=== PATIENT | male | born 1930 | race Asian ===

== ENCOUNTER 2019-02-25 13:02 | Inpatient (IN) | payer MEDICARE, MEDICAID ==
[~2019-02-25] VITALS: Ht 170.2 cm; Wt 62.6 kg
[2019-02-25] VITALS: BP 110/76
--- NOTE | 2019-02-25 13:30 | NUR ---
BIB RA 39,GLF ON THE WAY TO THE BATHROOM AT AN [facility], (+)GROSS DEFORMITY,LUE,(+) AIR SPLINT,100 MG FENTANYL GIVEN BY EMS. PT AAOX3, VSS. RR EVEN & UNLABORED. DENIES CP, SOB, DIZZINESS, N/V @ THIS TIME. PT SEEN & EVAL'D BY DR. HAGAN. DAUGHTER @ BS ASSISTING W/ TRANSLATION. WILL CONT TO MONITOR.
[2019-02-25 13:34] LABS: BASOPHILS % (AUTO) 0.3 % (0.0-2.0); EOSINOPHILS % (AUTO) 0.1 % (0.0-6.0); HEMATOCRIT 38 % (39-51); HEMOGLOBIN 12.6 g/dL (13.5-17.5); LYMPHOCYTES # (AUTO) 2.4 /CMM (0.8-4.8); LYMPHOCYTES % (AUTO) 19.7 % (20.0-44.0); MEAN CORPUSCULAR HGB CONC 33 g/dl (31.0-36.0); MEAN CORPUSCULAR VOLUME 97 fL (80-96); MONOCYTES # (AUTO) 0.6 /CMM (0.1-1.30); MONOCYTES % (AUTO) 4.7 % (2.0-12.0); NEUTROPHILS # (AUTO) 9.3 /CMM (1.8-8.9); NEUTROPHILS % (AUTO) 75.2 % (43.0-81.0); PLATELET COUNT (AUTO) 170 /CMM (150-450); RED BLOOD CELL COUNT(AUTO) 3.94 MIL/uL (4.5-6.0); WHITE BLOOD COUNT (AUTO) 12.3 K/uL (4.3-11.0)
[2019-02-25 13:42] LABS: CALCIUM, SERUM 9.4 mg/dL (8.5-10.1); CARBON DIOXIDE 29 mmol/L (21-32); CHLORIDE 104 mmol/L (98-107); CREATININE 1.2 mg/dL (0.6-1.3); GLUCOSE 237 mg/dL (74-106); POTASSIUM 3.8 mmol/L (3.5-5.1); SODIUM SERUM 140 mmol/L (136-145); UREA NITROGEN, BLOOD 27 mg/dL (7-18)
[2019-02-25 13:47] LABS: ALANINE AMINOTRANSFERASE 27 U/L (12-78); ALBUMIN 3.5 g/dL (3.4-5.0); ALKALINE PHOSPHATASE 68 U/L (46-116); ASPARTATE AMINOTRANSFERASE 19 U/L (15-37); BILIRUBIN,DIRECT 0.2 mg/dL (0.0-0.2); BILIRUBIN,TOTAL 0.6 mg/dL (0.2-1.0); TOTAL PROTEIN, SERUM 6.6 g/dL (6.4-8.2)
--- NOTE | 2019-02-25 13:49 | NUR ---
PT TO RADIOLOGY DEPT VIA [facility].
[2019-02-25] MEDS ORDERED: TAMS-12 PO (14:34)
[2019-02-25] MEDS ORDERED: INSU100I30 SQ (14:34)
[2019-02-25] MEDS ORDERED: AMYL1CAP58 PO (14:34)
[2019-02-25] MEDS ORDERED: CLOP75TA15 PO (14:34)
[2019-02-25] MEDS ORDERED: ATEN25TA PO (14:34)
[2019-02-25] MEDS ORDERED: ATOR10TA PO (14:34)
[2019-02-25] MEDS ORDERED: LOSA100T31 PO (14:34)
[2019-02-25] MEDS ORDERED: DEXL60CA3 PO (14:34)
[2019-02-25] MEDS ORDERED: DUTA0.5C PO (14:34)
[2019-02-25] MEDS ORDERED: IV NS 0.9% 1,000 ML BAG IV ONE (15:00)
--- NOTE | 2019-02-25 15:46 | NUR ---
PAGED [employer] FOR PANEL CALL
--- NOTE | 2019-02-25 15:51 | NUR ---
1525 WAITING FOR BED ASSIGNMENT FROM RN SUP
--- NOTE | 2019-02-25 16:20 | NUR ---
DERIAN PAGED FOR CONSULT. WAITING FOR CALL BACK FROM DR. STAFFORD
--- NOTE | 2019-02-25 16:24 | NUR ---
EPIC PAGED AGAIN WAITING FOR PANEL CALL
--- NOTE | 2019-02-25 16:58 | NUR ---
REPORT GIVEN TO STEPH COLINDRES FOR DARRYL
[2019-02-25 17:26] VITALS: BP 133/81
[2019-02-25 17:30] VITALS: BP 120/97
--- NOTE | 2019-02-25 18:00 | NUR ---
SUPERINTENDENT LOCAL NOTES Received pt from ER with dx of Syncope episode and s/p fall , under the care of DONNA CHOI AUTOMOBILE RADIO REPAIRER . A/O x1 with period of forgetfulness bed alarm place. Place on tele monitor with hr 87. IV HL RT FA, in place and flush well. Daughter at bedside per henri Ibarra to start cardiac diet. Noted juan cath in place with hematuria. Kept clean, dry. Plan of care discussed with pt and family. Bed alarm in place.Side rails up for safety, bed in lowest position. Per RN vmware engineer she'll going to see pt soon. Needs to place admission order. Will continue to monitor
--- NOTE | 2019-02-25 19:15 | NUR ---
NOTCHING PRESS OPERATOR NOTES Received pt in bed awake with family at bedside. pt noted with hematuria md aware. pt A/O x1 with period of forgetfulness. bed alarm on. pt on tele monitor with hr 87. safety measures in place with bed in lowest locked position with side rails up x2. call light within reach. will continue to monitor.
[2019-02-25 20:00] VITALS: BP 120/71
[2019-02-25] MEDS ORDERED: Z GUARD REMEDY 2 OZ OINT TP PRN (20:00)
[2019-02-25] MEDS ORDERED: HYDROCODONE/APAP 5/325MG 1 EACH TABLET PO PRN (20:00)
[2019-02-25] MEDS ORDERED: ZOLPIDEM TARTRATE 5 MG TABLET PO PRN (20:00)
[2019-02-25] MEDS ORDERED: ACETAMINOPHEN 325 MG TABLET PO PRN (20:00)
[2019-02-25] MEDS ORDERED: ONDANSETRON HCL/PF 4 MG/2 ML VIAL IVP PRN (20:00)
[2019-02-25] MEDS ORDERED: DEXTROSE 50%-WATER 50 ML DISP.SYRIN IV PRN (20:00)
[2019-02-25] MEDS ORDERED: MORPHINE SULFATE INJ 2 MG/ML DISP.SYRIN IV PRN (20:30)
[2019-02-25] MEDS: BLOOD SUGAR DIAGNOSTIC 1 EACH STRIP IN SCH ×2 (21:32→21:36)
[2019-02-25] MEDS: QUETIAPINE FUMARATE 25 MG TABLET PO SCH (21:37)
[2019-02-25 21:40] LABS: APPEARANCE,URINE SL CLOUDY (CLEAR); BILIRUBIN,URINE NEGATIVE (NEGATIVE); BLOOD, URINE LARGE Ery/uL (NEGATIVE); COLOR,URINE AMBER (YELLOW); KETONES,URINE NEGATIVE (NEGATIVE); LEUKOCYTE ESTERASE ,URINE NEGATIVE (NEGATIVE); NITRITE, URINE NEGATIVE (NEGATIVE); PROTEIN,URINE 30 mg/dl (NEGATIVE); UGLUCOSE 250 MG/DL mg/dL (NEGATIVE); UROBILINOGEN,URINE 0.2 EU/dL (0.2)
[2019-02-25 21:50] LABS: BACTERIA,URINE None seen /HPF (None Seen); RBC,URINE 51-80 /HPF (0-2); WBC,URINE NONE SEEN /HPF (0-3)
[2019-02-25] MEDS: INSULIN REGULAR, HUMAN 100 UNIT/ML 3 ML VIAL SQ PRN (22:18)
[2019-02-25] MEDS: IV NS 0.9% 1,000 ML IV PRN (22:55)
[2019-02-25] MEDS ORDERED: IV NS 0.9% 1,000 ML BAG IV PRN (23:00)
[2019-02-26] VITALS: BP 110/76
[2019-02-26 04:00] VITALS: BP_SYST 91; BP_SYST 94; BP_DIAS 48; BP_DIAS 54
[2019-02-26 06:30] LABS: HEMATOCRIT 27 % (39-51); HEMOGLOBIN 9.1 g/dL (13.5-17.5); LYMPHOCYTES # (AUTO) 1.1 /CMM (0.8-4.8); LYMPHOCYTES % (AUTO) 7.4 % (20.0-44.0); MEAN CORPUSCULAR HGB CONC 34 g/dl (31.0-36.0); MEAN CORPUSCULAR VOLUME 96 fL (80-96); MONOCYTES # (AUTO) 1.2 /CMM (0.1-1.30); MONOCYTES % (AUTO) 8.2 % (2.0-12.0); NEUTROPHILS # (AUTO) 12.5 /CMM (1.8-8.9); NEUTROPHILS % (AUTO) 84.4 % (43.0-81.0); PLATELET COUNT (AUTO) 133 /CMM (150-450); RED BLOOD CELL COUNT(AUTO) 2.79 MIL/uL (4.5-6.0); WHITE BLOOD COUNT (AUTO) 14.8 K/uL (4.3-11.0)
[2019-02-26 06:55] LABS: CALCIUM, SERUM 8.2 mg/dL (8.5-10.1); CARBON DIOXIDE 25 mmol/L (21-32); CHLORIDE 108 mmol/L (98-107); CREATININE 1.6 mg/dL (0.6-1.3); GLUCOSE 172 mg/dL (74-106); MAGNESIUM 2.5 mg/dL (1.8-2.4); PHOSPHORUS 4.6 mg/dL (2.5-4.9); POTASSIUM 4.5 mmol/L (3.5-5.1); SODIUM SERUM 144 mmol/L (136-145); UREA NITROGEN, BLOOD 34 mg/dL (7-18)
--- NOTE | 2019-02-26 07:00 | NUR ---
INSIDE PARTS SALES NOTES PATIENT IS RESTING IN BED, BUT EASILY WOKEN WITH NAME AND TOUCH. FAMILY IS AT BEDSIDE ( DAUGHTER) INFORMED HER ABOUT TREATMENT PLAN AND MEDICATION MANAGEMENT. PATIENT IS ON 2L OXYGEN PATIENT IS SATURATING WELL AT 96% . PATIENT IS A/O X1 PATIENT IS ON TELE MONITOR PATIENT IS SR AT 60-90'S . PATIENT HAS LEFT EDEMA SHOULD, WITH PURPLE AND YELLOW ANTERIOR AND MEDIAN AND LATERAL.PATIENT HAS A SLING ON PATIENT HAS DIAPER AND VANESSA VANESSA IS INTACT AND PATENT INTACT. THE COLOR OF THE URINE IS TEA COLOR. PATIENT HAS RFA 22# PATIENT HAS 75 ML/HR ( NS ) . BED LOCKED AND LOWEST POSITION, CALL LIGHT WITH IN REACH. ALL SAFETY MEASURES IMPLEMENTED PER HOSPITAL PROTOCOL
[2019-02-26 07:01] LABS: CHOLESTEROL 79 mg/dL (<200); HDL CHOLESTEROL 44 mg/dL (40-60); LDL 29 mg/dL (0-99); TRIGLYCERIDES 65 mg/dL (30-150)
--- NOTE | 2019-02-26 07:59 | NUR ---
SPORTS MEDICINE MASSEUR NOTES pt in bed resting with family at bedside. pt A/O x1 with period of forgetfulness. bed alarm on. pt on tele monitor with hr 75. pt with rfa #22g patent and intact infusing ns @75cc/hr. safety measures in place with bed in lowest locked position with side rails up x2. turned pt q2 hours throughout shift. pt kept clean, dry, and comfortable. call light within reach. will endorse to oncoming nurse for jason.
[2019-02-26 08:00] VITALS: BP 104/68
[2019-02-26] MEDS: BLOOD SUGAR DIAGNOSTIC 1 EACH STRIP IN SCH ×4 (09:36→22:19)
[2019-02-26] MEDS: PANTOPRAZOLE 40 MG TABLET.DR PO SCH (09:36)
--- NOTE | 2019-02-26 09:37 | NUR ---
WOUND CARE CONSULT: PT PRESENTS WITH LEFT SHOULDER SWELLING AND DISCOLORATION, LEFT KNEE DRY ABRASION AND NOSE DRY ABRASION, PRESENT ON ADMISSION. PT REFUSED TO TURN FOR FULL SKIN ASSESSMENT OF BACK AND BUTTOCKS. RECOMMENDATIONS MADE FOR SKIN PROTECTION. DISCUSSED WITH NURSING STAFF. PT ON GENESIS ISOFLEX LOW AIRLOSS BED. WILL SEE PRN. OTF BENDER NOTED. CURRENT KRISTI SCORE IS 15. MD IN AGREEMENT WITH PLAN OF CARE. Addendum: 02/26/19 at 0939 by KILO BECK WNDNU Amended: Links added.
--- NOTE | 2019-02-26 09:56 | NUR ---
ENTREPRENEURSHIP PROGRAM DIRECTOR NOTES BS 135- HOLD INSULIN. PATIENT DID NOT EAT FOOD NPO SINCE MIDNIGHT FAMILY AT BEDSIDE
--- NOTE | 2019-02-26 11:26 | NUR ---
PEDIATRIC DERMATOLOGIST NOTES - ATTENDING ATTENDING CHANDANA - SAW PATIENT
[2019-02-26] MEDS ORDERED: IV NS 0.9% 1,000 ML IV PRN (11:30)
[2019-02-26] MEDS ORDERED: AMYLASE/LIPASE/PROTEASE 1 CAP CAPSULE.DR PO SCH (13:00)
[2019-02-26 16:00] VITALS: BP 116/34
[2019-02-26] MEDS: LIPASE/PROTEASE/AMYLASE 1 EACH CAPSULE.DR PO SCH ×2 (16:27→19:16)
--- NOTE | 2019-02-26 18:00 | NUR ---
CANDY CUTTER MACHINE NOTES NO INSULIN COVERAGE.
--- NOTE | 2019-02-26 19:30 | NUR ---
VISUAL DESIGNER NOTES CLOSING PATIENT A/O X1 . PATIENT FAMILY AT BEDSIDE.NO PAIN PATIENT SHOWS NO SIGNS OF ACUTE DISTRESS, NO SOB, EVEN AND UNLABORED BREATHING . BED LOCKED AND LOWEST POSITION. CALL LIGHT WITH IN REACH . ALL SAFETY MEASURE IMPLEMENTED PER HOSPITAL POLICY
[2019-02-26 20:00] VITALS: BP 146/70
--- NOTE | 2019-02-26 20:00 | NUR ---
RN NOTES PM SHIFT PATIENT IS ALERT AND AWAKE, ROOM AIR, NO COMPLAIN OF PAIN AT REST, FAROESE SPEAKING ONLY, LEFT SHOULDER SUPPORTED WITH SLING, NOTED BRUISES DUE TO FALL, VANESSA CATHETER DRAINING WELL WITH DARK YELLOW URINE OUTPUT, FAMILY MEMBERS AT THE BEDSIDE, WILL CONTINUE TO MONITOR
[2019-02-26] MEDS: IV NS 0.9% 1,000 ML IV PRN (20:54)
[2019-02-26] MEDS: QUETIAPINE FUMARATE 25 MG TABLET PO SCH (21:54)
[2019-02-26] MEDS: ATORVASTATIN 10 MG TABLET PO SCH (21:54)
[2019-02-26] MEDS: INSULIN REGULAR, HUMAN 100 UNIT/ML 3 ML VIAL SQ PRN (22:00)
[2019-02-27] VITALS (10 sets, daily range): BP systolic 126–134; BP diastolic 18–76
[2019-02-27] MEDS: IV NS 0.9% 1,000 ML IV PRN ×3 (05:01→22:17)
[2019-02-27 06:00] LABS: BASOPHILS % (AUTO) 0.2 % (0.0-2.0); EOSINOPHILS % (AUTO) 0.1 % (0.0-6.0); HEMATOCRIT 23 % (39-51); HEMOGLOBIN 7.6 g/dL (13.5-17.5); LYMPHOCYTES % (AUTO) 9.2 % (20.0-44.0); MEAN CORPUSCULAR HGB CONC 34 g/dl (31.0-36.0); MEAN CORPUSCULAR VOLUME 97 fL (80-96); MONOCYTES # (AUTO) 0.9 /CMM (0.1-1.30); MONOCYTES % (AUTO) 8.6 % (2.0-12.0); NEUTROPHILS # (AUTO) 8.6 /CMM (1.8-8.9); NEUTROPHILS % (AUTO) 81.9 % (43.0-81.0); PLATELET COUNT (AUTO) 92 /CMM (150-450); RED BLOOD CELL COUNT(AUTO) 2.31 MIL/uL (4.5-6.0); WHITE BLOOD COUNT (AUTO) 10.5 K/uL (4.3-11.0)
[2019-02-27 06:22] LABS: CALCIUM, SERUM 7.7 mg/dL (8.5-10.1); CREATININE 1.2 mg/dL (0.6-1.3); MAGNESIUM 2.2 mg/dL (1.8-2.4); PHOSPHORUS 2.7 mg/dL (2.5-4.9); POTASSIUM 4.4 mmol/L (3.5-5.1)
--- NOTE | 2019-02-27 06:54 | NUR ---
RN NOTES PM SHIFT PATIENT ALERT AND AWAKE, STABLE ON ROOM AIR, NO COMPLAIN OF PAIN AT REST, PAIN DURING REPOSITIONING, LEFT SHOULDER SUPPORTED DURING REPOSITIONING, LEFT SHOULDER SECURED WITH SLING, NWB, DENIES NUMBNESS, ABLE TO MOVE FINGERS, SKIN WARM TO TOUCH, BRUISES NOTED DUE TO FALL, LAB REPORTED CORTISOL LEVEL OF 29,DR. TERAN NOTIFIED, NO NEW ORDER, VANESSA CATHETER DRAINING WELL WITH CLEAR YELLOW URINE, PER ORTHO, NO SURGICAL INTERVENTION PLANNED, WILL NEED SADLER BRACE, FOLLOW UP WITH DR. FUENTES IN 2 WEEKS. SON AT THE BEDSIDE.
--- NOTE | 2019-02-27 07:30 | NUR ---
SILVERWARE WASHER NOTES PATIENT IN BED SLEEPING , ABLE TO WAKE UP WHEN NAME CALLED. FAMILY MEMBER AT BED SIDE. NO SOB OR DISCOMFORT NOTED AT THIS TIME. CALL LIGHT WITHIN REACH BED AT THE LOWEST POSITION. WILL CONTINUE TO MONITOR.
[2019-02-27] MEDS: BLOOD SUGAR DIAGNOSTIC 1 EACH STRIP IN SCH ×4 (07:44→22:38)
--- NOTE | 2019-02-27 07:45 | NUR ---
BIN TRIPPER OPERATOR NOTES BG 130MG/DL NO INSULIN GIVEN.
[2019-02-27] MEDS: LIPASE/PROTEASE/AMYLASE 1 EACH CAPSULE.DR PO SCH ×3 (08:12→17:52)
[2019-02-27] MEDS: DUTASTERIDE (0.5 MG) 0.5 MG CAPSULE PO SCH ×2 (08:12→09:01)
[2019-02-27] MEDS: PANTOPRAZOLE 40 MG TABLET.DR PO SCH (08:12)
[2019-02-27] MEDS ORDERED: TAMSULOSIN 0.4 MG CAP.SR.24H PO SCH (09:00)
[2019-02-27] MEDS ORDERED: ATENOLOL 25 MG TABLET PO SCH (09:00)
[2019-02-27 09:24] LABS: LYMPHOCYTES % (MANUAL) 9 % (16-48); MONOCYTES % (MANUAL) 5 % (0-11.0); NEUTROPHILS % (MANUAL) 86 (42-76)
[2019-02-27] MEDS: INSULIN REGULAR, HUMAN 100 UNIT/ML 3 ML VIAL SQ PRN ×3 (12:24→22:38)
--- NOTE | 2019-02-27 14:07 | NUR ---
BRUSH CLEARING LABORER NOTES CALLED [facility] AND LEFT A MSG REQUESTED SADLER BRACE FOR LUE.
[2019-02-27] MEDS: MAGNESIUM HYDROXIDE 30 ML UDC PO PRN (17:52)
--- NOTE | 2019-02-27 19:18 | NUR ---
TECHNICAL PHOTOGRAPHER NOTES PATIENT IS IN BED A/OX 4 DAUGHTER AT BED SIDE. DENIES ANY PAIN WHEN SUPINE. ALL NEEDS ATTENDED. ALL MEDICATION ADMINISTRATED. CALL LIGHT WITHIN REACH , BED AT THE LOWEST POSITION LOCKED. ENDORSED TO SUPERVISOR HARVESTING NURSE FOR DARRYL.
[2019-02-27] MEDS: QUETIAPINE FUMARATE 25 MG TABLET PO SCH (22:16)
[2019-02-27] MEDS: ATORVASTATIN 10 MG TABLET PO SCH (22:16)
[2019-02-28 00:30] VITALS: BP 133/66
[2019-02-28] MEDS: IV NS 0.9% 1,000 ML IV PRN ×2 (05:30→18:42)
[2019-02-28 06:21] LABS: BASOPHILS % (AUTO) 0.2 % (0.0-2.0); EOSINOPHILS % (AUTO) 0.2 % (0.0-6.0); HEMATOCRIT 23 % (39-51); LYMPHOCYTES # (AUTO) 0.9 /CMM (0.8-4.8); LYMPHOCYTES % (AUTO) 12.7 % (20.0-44.0); MEAN CORPUSCULAR HGB CONC 34 g/dl (31.0-36.0); MEAN CORPUSCULAR VOLUME 93 fL (80-96); MONOCYTES # (AUTO) 0.6 /CMM (0.1-1.30); MONOCYTES % (AUTO) 8.8 % (2.0-12.0); NEUTROPHILS # (AUTO) 5.8 /CMM (1.8-8.9); NEUTROPHILS % (AUTO) 78.1 % (43.0-81.0); PLATELET COUNT (AUTO) 85 /CMM (150-450); RED BLOOD CELL COUNT(AUTO) 2.51 MIL/uL (4.5-6.0); WHITE BLOOD COUNT (AUTO) 7.4 K/uL (4.3-11.0)
[2019-02-28 06:39] LABS: CALCIUM, SERUM 7.1 mg/dL (8.5-10.1); MAGNESIUM 2.5 mg/dL (1.8-2.4); PHOSPHORUS 1.9 mg/dL (2.5-4.9); POTASSIUM 3.9 mmol/L (3.5-5.1)
--- NOTE | 2019-02-28 07:12 | NUR ---
VP INFORMATION TECHNOLOGY OPENING NOTE RECEIVED REPORT FROM NOC SHIFT NURSE, PT ASLEEP IN BED,ON ROOM AIR, SATURATING WELL, RESPIRATIONS EVEN AND UNLABORED, NO SIGNS OF RESPIRATORY DISTRESS NOTED. VANESSA CATHETER INTACT, PATENT, DRAINING CLEAR YELLOW URINE. IV SITE ON RIGHT FOREARM G22 INTACT, PATENT, NS INFUSING 125CC/HR, NO SIGNS OF INFILTRATION NOTED. BED IN LOW POSITION, LOCKED, CALL LIGHT WITHIN REACH.
[2019-02-28] MEDS: BLOOD SUGAR DIAGNOSTIC 1 EACH STRIP IN SCH ×4 (07:26→21:07)
[2019-02-28] MEDS: PANTOPRAZOLE 40 MG TABLET.DR PO SCH (07:29)
[2019-02-28] MEDS: INSULIN REGULAR, HUMAN 100 UNIT/ML 3 ML VIAL SQ PRN ×4 (07:30→20:24)
[2019-02-28 07:44] LABS: LYMPHOCYTES % (MANUAL) 8 % (16-48); MONOCYTES % (MANUAL) 4 % (0-11.0); NEUTROPHILS % (MANUAL) 88 (42-76)
[2019-02-28 08:00] VITALS: BP 120/60
[2019-02-28] MEDS: LIPASE/PROTEASE/AMYLASE 1 EACH CAPSULE.DR PO SCH ×3 (08:02→17:10)
[2019-02-28] MEDS: DUTASTERIDE (0.5 MG) 0.5 MG CAPSULE PO SCH (08:21)
[2019-02-28] MEDS ORDERED: K PHOS NEUTRAL 250 MG TABLET PO ONE (09:30)
--- NOTE | 2019-02-28 09:41 | NUR ---
CALLED [facility] [phone] LEFT VOICEMAIL. OPEN FRIDAY-FRIDAY ONLY.\ FAMILY NOTIFIED.
[2019-02-28 12:00] VITALS: BP 103/45
[2019-02-28] MEDS ORDERED: Calcium Gluconate 0.465 MEQ/ML VIAL IV ONE (13:00)
[2019-02-28] MEDS ORDERED: Sodium Phosphate 15 MMOL in IV D5W 250 ML IV ONE (13:00)
[2019-02-28] MEDS ORDERED: Calcium Gluconate 1GM/10ML 4.65 MEQ in IV NS 0.9% 50 ML IV ONE (13:00)
[2019-02-28 16:00] VITALS: BP 121/57
--- NOTE | 2019-02-28 18:25 | NUR ---
HISTORIAN DRAMATIC ARTS CLOSING NOTE PT AWAKE IN BED, ALERT AND ORIENTED X 1, TURKISH SPEAKING, DAUGHTER BY BEDSIDE FOR TRANSLATION, ON ROOM AIR, SATURATING WELL, RESPIRATIONS EVEN AND UNLABORED, NO SIGNS OF RESPIRATORY DISTRESS NOTED. VANESSA CATHETER INTACT, PATENT, DRAINING CLEAR YELLOW URINE. IV SITE ON RIGHT FOREARM G22 INTACT, PATENT, NS INFUSING 125CC/HR, NO SIGNS OF INFILTRATION NOTED. SINUS RHYTHM ON TELE MONITOR, HR 87. BED IN LOW POSITION, LOCKED, CALL LIGHT WITHIN REACH. PROVIDED SAFETY AND COMFORT TO PT THROUGHOUT SHIFT, ALL DUE MEDS GIVEN. WILL ENDORSE TO NOC SHIFT NURSE.
--- NOTE | 2019-02-28 19:30 | NUR ---
RN NOTE PT AWAKE IN BED IN SUPINE POSITION, ALERT AND ORIENTED X 1, YORUBA SPEAKING, FAMILY AT BEDSIDE, ON ROOM AIR, SATURATING WELL, RESPIRATIONS EVEN AND UNLABORED, NO SIGNS OF RESPIRATORY DISTRESS NOTED. VANESSA CATHETER PATENT AND DRAINING CLEAR YELLOW URINE. WITH IV SITE ON RIGHT FOREARM G22 PATENT WITH NS INFUSING 125CC/HR, SINUS RHYTHM ON TELE MONITOR, HR 87. BED IN LOW POSITION, LOCKED, CALL LIGHT WITHIN REACH WILL MONITOR.
[2019-02-28 20:00] VITALS: BP 138/69
[2019-02-28] MEDS: ATORVASTATIN 10 MG TABLET PO SCH (21:07)
[2019-02-28] MEDS: QUETIAPINE FUMARATE 25 MG TABLET PO SCH (21:07)
[2019-03-01] VITALS: BP 123/65
--- NOTE | 2019-03-01 00:19 | NUR ---
RN NOTE IV SITE ON RIGHT FOREARM NOTED TO REDDENED WITH SWELLING. SITE REMOVED. INSERTED NEW IV SITE ON RIGHT WRIST 22G. PT TOLERATED WELL.
[2019-03-01] MEDS: IV NS 0.9% 1,000 ML IV PRN ×2 (02:51→11:14)
[2019-03-01 04:00] VITALS: BP 121/62
[2019-03-01 06:24] LABS: BASOPHILS % (AUTO) 0.2 % (0.0-2.0); EOSINOPHILS % (AUTO) 1.3 % (0.0-6.0); HEMATOCRIT 23 % (39-51); HEMOGLOBIN 7.8 g/dL (13.5-17.5); LYMPHOCYTES # (AUTO) 0.8 /CMM (0.8-4.8); LYMPHOCYTES % (AUTO) 13.6 % (20.0-44.0); MEAN CORPUSCULAR HGB CONC 34 g/dl (31.0-36.0); MEAN CORPUSCULAR VOLUME 95 fL (80-96); MONOCYTES # (AUTO) 0.4 /CMM (0.1-1.30); MONOCYTES % (AUTO) 7.7 % (2.0-12.0); NEUTROPHILS # (AUTO) 4.3 /CMM (1.8-8.9); NEUTROPHILS % (AUTO) 77.2 % (43.0-81.0); PLATELET COUNT (AUTO) 100 /CMM (150-450); RED BLOOD CELL COUNT(AUTO) 2.43 MIL/uL (4.5-6.0); WHITE BLOOD COUNT (AUTO) 5.6 K/uL (4.3-11.0)
[2019-03-01 06:30] LABS: MAGNESIUM 2.5 mg/dL (1.8-2.4); PHOSPHORUS 2.9 mg/dL (2.5-4.9); POTASSIUM 3.9 mmol/L (3.5-5.1)
--- NOTE | 2019-03-01 07:29 | NUR ---
RN NOTE PT SLEEPING IN BED IN SEMI BURGESS'S POSITION WITHOUT INDICATIONS OF ACUTE DISTRESS OR DISCOMFORT. ON ROOM AIR. FAMILY AT BED SIDE. KEPT CLEAN AND DRY. SLING IN PLACE. IVF RUNNING AT 125ML/HR ORDERED. VANESSA CATHETER IN PLACE AND PATENT DRAINING CLEAR YELLOW URINE. BED ALARM IN PLACE. CALL LIGHT WITHIN REACH. WILL MONITOR.
[2019-03-01 08:00] VITALS: BP 140/70
[2019-03-01] MEDS: BLOOD SUGAR DIAGNOSTIC 1 EACH STRIP IN SCH ×2 (08:08→11:54)
[2019-03-01] MEDS: PANTOPRAZOLE 40 MG TABLET.DR PO SCH (08:14)
[2019-03-01] MEDS: DUTASTERIDE (0.5 MG) 0.5 MG CAPSULE PO SCH (08:16)
[2019-03-01] MEDS: LIPASE/PROTEASE/AMYLASE 1 EACH CAPSULE.DR PO SCH ×2 (08:16→12:28)
--- NOTE | 2019-03-01 11:29 | NUR ---
RN NOTES 07-RECEIVED PATIENT FROM RN. PATIENT AWAKE, ALERT. DAUGHTER AT BEDSIDE. LEFT ARM ON SLING, POSITIONED FOR COMFORT. LEFT HAND WITH STRONG CUT PRESSMAN. PILLOW SUPPORT PLACED. 09-SEEN BY MARQUIS PAGE, SHE DISCUSSED PALN OF CARE WITH PATIENT DAUGHTER. AWAITING FOR SADLER BRACE, FOLLOWED UP WITH COMPANY EARLIER. 1100-SADLER BRACE PLACED SAFELY BY PT, DAUGHTER WAS INSTRUCTED ON HOW TO PLACE VIA DEMONSTRATION. PATIENT SAT AT EDGE OF BED WITH ASSIST. BP-153/80; HR-84.PATIENT STATES HE FEEELS DIZZY, PER FAMILY, PATIENT HAS BEEN LAYING ON BED FOR SEVERAL DAYS AND THIS IS THE FIRST TIME HE SITS UP.
[2019-03-01 12:00] VITALS: BP 133/72
[2019-03-01] MEDS: INSULIN REGULAR, HUMAN 100 UNIT/ML 3 ML VIAL SQ PRN (12:34)
[2019-03-01] MEDS: MAGNESIUM HYDROXIDE 30 ML UDC PO PRN (13:46)
[2019-03-01] MEDS ORDERED: POLYETHYLENE GLYCOL 3350 17 GM POWD.PACK PO STA (15:24)
[2019-03-01 16:00] VITALS: BP 158/78
--- NOTE | 2019-03-01 16:00 | NUR ---
RN NOTES 1400-PATIENT REPOSIITONED, SADLER BRACE IN PLACE, PILLOW PLACED UNDER THE LOWER ARM FOR SUPPORT.GOOD HAND JAVA SCALA DEVELOPER ON THE LEFT ARM. 1535-PATIENT DAUGHTER STATES PATIENT IS " ACTING UP" BECAUSE "HE WANTS TO DO BM".ORDER OBTAINED FOR DIGITAL EXAM/DISIMPACTION, DONE, NO BM ON THE LOWER PART OF THE RECTUM, DAUGHTER INFORMED, LAXATIVE ADMINISTERED ORDERED, DAUGHTER INFORMED
[2019-03-01] MEDS ORDERED: LIPA1CAP27 PO (16:26)
[2019-03-01] MEDS ORDERED: QUET25TA PO (16:26)
--- NOTE | 2019-03-01 17:30 | NUR ---
STEPH BARNES 1615-REPORT GIVEN TO STEPH HADDAD FOR FURTHER CARE.PATIENT RESTING, FAMILY AT BEDSIDE.PATIENT HAS GOOD BIRDCAGE ASSEMBLER ON BOTH HANDS.AROM EXRECISES ON THE RIGHT FINGERS ENCOURAGED 1715-PATIENT PICKED UP BY TRANSPORT PERSONNEL, REPORT GIVEN
== END 2019-03-01 17:20 | DRG 542 ==
LOC: ER 13:15 → TELE1 16:34
PROVIDERS: ADMIT Nurse Practitioner Acute Care; ATTEND Nurse Practitioner Acute Care
PROC: 30233N1 Transfusion of Nonautologous Red Blood Cells into Peripheral Vein, Percutaneous Approach (ICD-10-PCS; principal; 2019-02-27)
DX: M80.022A Age-related osteoporosis with current pathological fracture, left humerus, initial encounter for fracture (principal); N17.0 Acute kidney failure with tubular necrosis; G92 Toxic encephalopathy; D62 Acute posthemorrhagic anemia; Z79.4 Long term (current) use of insulin; N18.3 Chronic kidney disease, stage 3 (moderate); E11.22 Type 2 diabetes mellitus with diabetic chronic kidney disease; I12.9 Hypertensive chronic kidney disease with stage 1 through stage 4 chronic kidney disease, or unspecified chronic kidney disease; E78.5 Hyperlipidemia, unspecified; I25.10 Atherosclerotic heart disease of native coronary artery without angina pectoris; W18.30XA Fall on same level, unspecified, initial encounter; F03.90 Unspecified dementia, unspecified severity, without behavioral disturbance, psychotic disturbance, mood disturbance, and anxiety; E83.51 Hypocalcemia; D69.6 Thrombocytopenia, unspecified; D72.829 Elevated white blood cell count, unspecified; E83.39 Other disorders of phosphorus metabolism; I95.1 Orthostatic hypotension; M85.80 Other specified disorders of bone density and structure, unspecified site; Y93.9 Activity, unspecified; N40.0 Benign prostatic hyperplasia without lower urinary tract symptoms; Z86.73 Personal history of transient ischemic attack (TIA), and cerebral infarction without residual deficits; Z98.61 Coronary angioplasty status; S40.022A Contusion of left upper arm, initial encounter; R53.1 Weakness; S20.212A Contusion of left front wall of thorax, initial encounter; Y92.009 Unspecified place in unspecified non-institutional (private) residence as the place of occurrence of the external cause
CPT/HCPCS: 36415; 70450-TC; 71045-TC; 72125-TC; 73060-TC; 80048-TC; 80061-TC; 80076-TC; 81000-TC; 82533; 82962-TC; 83735-TC; 84100-TC; 84443-TC; 84484-TC; 85025-TC; 86850-TC; 86921-TC; 87081-TC; 93307-TC; 93880-TC; 97530-TC; A4216; A9563; G0378; J0610; J1815; J7030; J7060; P9016-BL